=== PATIENT | male | born 1965 | race Caucasian/White ===

== ENCOUNTER 2016-08-01 08:08 | Emergency (ER) | payer BC ==
[2016-08-01 08:14] VITALS: BP 132/82
--- NOTE | 2016-08-01 08:28 | UC ---
Complaint Male HPI - HPI Summary HPI Summary: FELT A BULGE ON HIS LEFT GROIN AREA HE WAS [facility]ING [facility] THIS MORNING ABOUT 2 HRS AGO + SWELLING, AND PAIN LEFT INGUINAL AREA NO NAUSEA AND NO VOMITING , NO DYSURIA - History of Current Complaint Chief Complaint: UCGeneralIllness Stated Complaint: GROIN PAIN Time Seen by Provider: 08/01/16 08:09 Hx Obtained From: Patient Onset/Duration: Sudden Onset, Lasting Hours - 2, Still Present Timing: Constant Severity Initially: Moderate Severity Currently: Moderate Location: Groin - LEFT INGUINAL AREA Character: Constant Pressure Aggravating Factor(s): Nothing Alleviating Factor(s): Nothing Associated Signs And Symptoms: Negative: Diaphoresis, Back Pain, Fever, Hematuria, Dysuria, Constipation, Blood in Stool, Rectal Pain, Appetite, Nausea , Vomiting(# Of Episodes =), Penile Swelling, Penile Discharge - Allergies/Home Medications Allergies/Adverse Reactions: Allergies Allergy/AdvReac Type Severity Reaction Status Date / Time No Known Allergies Allergy Verified 08/01/16 08:14 Home Medications: Home Medications NK [No Home Medications Reported] 08/01/16 [History Confirmed 08/01/16] PMH/Surg Hx/FS Hx/Imm Hx Previously Healthy: Yes - Surgical History Surgical History: None - Family History Known Family History: Negative: Diabetes - Social History Alcohol Use: Rare Substance Use Type: None Smoking Status (MU): Never Smoked Tobacco Review of Systems Constitutional: Negative Skin: Negative Eyes: Negative ENT: Negative Respiratory: Negative All Other Systems Reviewed And Are Negative: Yes Physical Exam Triage Information Reviewed: Yes Appearance: Well-Appearing, No Pain Distress, Well-Nourished Vital Signs: Initial Vital Signs Temp 98.3 F 08/01/16 08:11 Pulse 80 08/01/16 08:11 Resp 16 08/01/16 08:11 BP 132/82 08/01/16 08:11 Pulse Ox 100 08/01/16 08:11 Vital Signs Reviewed: Yes Eye Exam: Normal Eyes: Positive: Conjunctiva Clear ENT: Positive: Normal ENT inspection, Hearing grossly normal, Pharynx normal Neck exam: Normal Neck: Positive: Supple, Nontender, No Lymphadenopathy Respiratory: Positive: Chest non-tender, Lungs clear, Normal breath sounds Cardiovascular: Positive: RRR, No Murmur, Pulses Normal Abdominal Exam: Normal Abdomen Description: Positive: Soft. Negative: CVA Tenderness (R), CVA Tenderness (L), Distended, Guarding Bowel Sounds: Positive: Present UC Physical Exam Vital Signs On Initial Exam: Initial Vitals Temp Pulse Resp BP Pulse Ox 98.3 F 80 16 132/82 100 08/01/16 08:11 08/01/16 08:11 08/01/16 08:11 08/01/16 08:11 08/01/16 08:11 - Abdomen Description Abdomen Description: Soft, Hernia @ - LEFT INGUANAL AREA Complaint Male Course/Dx - Differential Dx/Diagnosis Provider Diagnoses: LEFT INGUINAL HERNIA Discharge - Discharge Plan Condition: Stable Disposition: HOME Patient Education Materials: Inguinal Hernia (ED) Forms: *Work Release Referrals: Duran Malave MD [Medical Doctor] - As Soon As Possible
== END 2016-08-01 08:38 | disposition home or self-care (01) ==
LOC: UCCORT 08:08
DX: K40.90 Unilateral inguinal hernia, without obstruction or gangrene, not specified as recurrent (principal)
CPT/HCPCS: 99201; G0463

== ENCOUNTER → 2016-08-07 13:27 | Day surgery (SDC) | payer BC ==
[~2016-08-07 13:27] MED LIST: Buffered Lidocaine 1% SYR 3ML* 3 ML/SYR SYRINGE INTRADERM ONE; Buffered Lidocaine 1% SYR 3ML* 3 ML/SYR SYRINGE ONE; Bupivacaine 0.5% W/EPI SDV* 30 ML VIAL ONE; Dexamethasone IV* 4 MG/ML 1 ML (4 MG) ONE; Famotidine IV* 10 MG/ML 2 ML (20 mg) IV ONE; Famotidine IV* 10 MG/ML 2 ML (20 mg) ONE; KETAMINE HCL* 50 MG/ML 10 ML VIAL ONE; Ketorolac INJ* 30 MG/ML 1 ML VIAL ONE; Lidocaine 1% INJ* 10 MG/ML 30 ML SDV ONE; Midazolam* 1 MG/ML 5 ML VIAL (5 MG) ONE; Morphine INJ* 2 MG/ML 1 ML CARPUJECT IV PRN; Ondansetron INJ* 2 MG/ML VIAL ONE; PROCHLORPERAZINE INJ 5 MG/ML 2 ML VIAL IV PRN; Propofol* 10 MG/ML 20 ML BTL IV PUSH ONE; ceFAZolin 2 GM PREMIX (*) 2 GM/50 ML BAG IVPB ONE; fentaNYL* 50 MCG/ML 2 ML VIAL (100 MCG VIAL) IV PRN; fentaNYL* 50 MCG/ML 2 ML VIAL (100 MCG VIAL) ONE; oxyCODONE/Acetamin 5/325 MG* TAB ONE
--- NOTE | 2016-08-07 17:44 | PN ---
Progress Note - Progress Note Note: Brief Operative Note: Preop Dx: Left Inguinal Hernia Postop Dx: same, indirect Procedure: open repair LIH w/ mesh Anesthesia: GET Fluids: 1 liter RL Surgeon: Kim Asst: ANA M Suh EBL: none Drains: none Specimen: none
[2016-08-07] MEDS: oxyCODONE/Acetamin 5/325 MG* TAB PO PRN ×2 (20:06→20:07)
[2016-08-07 20:26] VITALS: BP 124/78
--- NOTE | 2016-08-08 08:37 | OP ---
DATE OF OPERATION: 08/07/16 [facility] DATE OF : 67. SURGEON: Paul Alvarez MD. DIRECTOR STATE PHARMACY: ANA M Waters. ANESTHESIOLOGIST: Dr. Jackson. ANESTHESIA: General with local. PRE-OP DIAGNOSIS: Left inguinal hernia. POST-OP DIAGNOSIS: Left indirect inguinal hernia. OPERATIVE PROCEDURE: Open repair of left indirect inguinal hernia with mesh. ESTIMATED BLOOD LOSS: Minimal. WOUND CLASSIFICATION: I. IV FLUIDS: 1 L crystalloid. SPECIMENS: None. DRAINS: None. COMPLICATIONS: None. DESCRIPTION OF PROCEDURE: Written informed consent was obtained, the left groin was marked with indelible ink and preoperative antibiotics were administered. The patient was taken to the operating room and placed in the supine position. Sequential compression devices and warming blanket were applied. Anesthesia was administered and the left lower abdomen and groin were prepped and draped in the usual sterile fashion. 0.25% Marcaine mixed with 1% lidocaine was infiltrated in the left groin and an oblique incision was made several fingerbreadths above the inguinal crease, carried down through Mir's fascia, and the external oblique aponeurosis and external ring were identified. The aponeurosis was opened in the direction of its fibers to expose the underlying spermatic cord. The cord structures were then encircled with a 1/4-inch [place] drain at the pubic tubercle. The cord and underlying inguinal floor were then carefully evaluated. The direct space appeared to be intact without evidence of hernia. Careful evacuation of the cord showed a cord lipoma, which was excised up into the internal ring. Also noted was an indirect inguinal hernia sac, which was from the cord with care to prevent injury to its structures throughout the remainder of the case up into the internal ring, which was really almost of normal size. The sac was then inserted or reduced without difficulty back into the peritoneal cavity. Next, the Covidien ProGrip mesh was then placed and sutured into position to the pubic tubercle medially, the conjoined tendon superiorly, the musculature laterally with interrupted 0 Polysorb suture. It was secured to the inguinal ligament inferiorly with a running 0 Polysorb suture. The mesh sat nicely under no tension, and reconstructed the abdominal wall nicely. The additional Marcaine was infiltrated. The external oblique aponeurosis was closed with a running 0 Polysorb suture. Mir's fascia was closed with a running 3-0 Polysorb suture. The skin was approximated with subcuticular 4-0 Polysorb suture. Steri-Strips and sterile dressings were applied. The patient tolerated the procedure well, and was taken to the recovery room in stable condition. [id number] #: [id number] MTDD
== END | disposition home or self-care (01) ==
LOC: OR 13:27
PROVIDERS: ATTEND Surgery
DX: K40.90 Unilateral inguinal hernia, without obstruction or gangrene, not specified as recurrent (principal)
CPT/HCPCS: A9270-GY; J0690; J1100; J1885; J2250; J2405; J2704; J3010